=== PATIENT | male | born 1940 | race American Indian/Alaskan Native ===

== ENCOUNTER 2019-01-21 13:44 | Emergency (ER) | payer BC, MEDICARE, OTHER ==
[~2019-01-21] VITALS: Ht 165.1 cm; Wt 56.7 kg
--- NOTE | 2019-01-21 13:51 | NUR ---
"C/O R RIB PAIN SINCE YESTERDAY, -TRAUMA" PT AAOX4, -SOB, NAD NOTED, VSS ,PENDING MD FUENTES
[2019-01-21] MEDS ORDERED: KETOROLAC TROMETHAMINE INJ 30 MG/ML VIAL IV ONE (14:30)
[2019-01-21] MEDS ORDERED: IV NS 0.9% 1,000 ML BAG IV ONE (14:30)
[2019-01-21 14:37] LABS: BASOPHILS # (AUTO) 0.1 /CMM (0.0-0.2); BASOPHILS % (AUTO) 0.7 % (0.0-2.0); EOSINOPHILS % (AUTO) 1.8 % (0.0-6.0); HEMATOCRIT 44 % (39-51); HEMOGLOBIN 14.7 g/dL (13.5-17.5); LYMPHOCYTES # (AUTO) 1.6 /CMM (0.8-4.8); LYMPHOCYTES % (AUTO) 21.2 % (20.0-44.0); MEAN CORPUSCULAR HGB CONC 33 g/dl (31.0-36.0); MEAN CORPUSCULAR VOLUME 95 fL (80-96); MONOCYTES # (AUTO) 0.8 /CMM (0.1-1.30); MONOCYTES % (AUTO) 10.9 % (2.0-12.0); NEUTROPHILS % (AUTO) 65.4 % (43.0-81.0); PLATELET COUNT (AUTO) 262 /CMM (150-450); RED BLOOD CELL COUNT(AUTO) 4.67 MIL/uL (4.5-6.0); WHITE BLOOD COUNT (AUTO) 7.6 K/uL (4.3-11.0)
[2019-01-21 14:50] LABS: ALBUMIN 3.6 g/dL (3.4-5.0); BILIRUBIN,DIRECT 0.1 mg/dL (0.0-0.2); BILIRUBIN,TOTAL 0.5 mg/dL (0.2-1.0); CALCIUM, SERUM 8.8 mg/dL (8.5-10.1); POTASSIUM 4.1 mmol/L (3.5-5.1); TOTAL PROTEIN, SERUM 7.8 g/dL (6.4-8.2)
[2019-01-21] MEDS ORDERED: KETOROLAC TROMETHAMINE 15 MG/ML VIAL ONE (14:51)
--- NOTE | 2019-01-21 15:50 | NUR ---
Patient discharged to home in stable condition. Written and verbal after care instructions given. Patient verbalizes understanding of instruction. IV removed. Catheter intact and site benign. Pressure and 4x4 applied to site. No bleeding noted.
[2019-01-21 15:52] VITALS: BP 129/80
== END 2019-01-21 15:53 | disposition home or self-care (01) ==
LOC: ER 13:47
DX: K57.32 Diverticulitis of large intestine without perforation or abscess without bleeding (principal); E78.00 Pure hypercholesterolemia, unspecified; I25.10 Atherosclerotic heart disease of native coronary artery without angina pectoris; I10 Essential (primary) hypertension; I25.2 Old myocardial infarction; R00.1 Bradycardia, unspecified; Z95.5 Presence of coronary angioplasty implant and graft; Z87.442 Personal history of urinary calculi; Z60.2 Problems related to living alone
CPT/HCPCS: 36415; 74176; 80048; 80076; 83690; 85025; 93005; 96374; 99284; J1885

== ENCOUNTER 2019-05-15 05:46 | Inpatient (IN) | payer OTHER ==
[~2019-05-15] VITALS: Ht 162.6 cm; Wt 57.2 kg
[2019-05-15 06:20] LABS: BASOPHILS % (AUTO) 0.7 % (0.0-2.0); EOSINOPHILS % (AUTO) 2.6 % (0.0-6.0); HEMATOCRIT 38 % (39-51); HEMOGLOBIN 12.7 g/dL (13.5-17.5); LYMPHOCYTES # (AUTO) 2.3 /CMM (0.8-4.8); LYMPHOCYTES % (AUTO) 34.5 % (20.0-44.0); MEAN CORPUSCULAR HGB CONC 33 g/dl (31.0-36.0); MEAN CORPUSCULAR VOLUME 94 fL (80-96); MONOCYTES # (AUTO) 1.1 /CMM (0.1-1.30); MONOCYTES % (AUTO) 16.4 % (2.0-12.0); NEUTROPHILS % (AUTO) 45.8 % (43.0-81.0); PLATELET COUNT (AUTO) 216 /CMM (150-450); RED BLOOD CELL COUNT(AUTO) 4.08 MIL/uL (4.5-6.0); WHITE BLOOD COUNT (AUTO) 6.6 K/uL (4.3-11.0)
[2019-05-15 06:30] LABS: CALCIUM, SERUM 8.3 mg/dL (8.5-10.1); CREATININE 0.9 mg/dL (0.6-1.3); POTASSIUM 3.8 mmol/L (3.5-5.1)
[2019-05-15 06:42] LABS: ALBUMIN 2.9 g/dL (3.4-5.0); BILIRUBIN,DIRECT 0.2 mg/dL (0.0-0.2); BILIRUBIN,TOTAL 0.5 mg/dL (0.2-1.0); TOTAL PROTEIN, SERUM 6.8 g/dL (6.4-8.2)
[2019-05-15 07:59] LABS: BAND % (MANUAL) 1 % (0.0-5.0); EOSINOPHILS % (MANUAL) 5 % (0-4); LYMPHOCYTES % (MANUAL) 30 % (16-48); MONOCYTES % (MANUAL) 18 % (0-11.0); NEUTROPHILS % (MANUAL) 46 (42-76)
[2019-05-15 09:00] VITALS: BP 132/79
[2019-05-15] MEDS ORDERED: ONDANSETRON HCL/PF 4 MG/2 ML VIAL IVP PRN (09:30)
[2019-05-15] MEDS ORDERED: ACETAMINOPHEN 325 MG TABLET PO PRN (09:30)
[2019-05-15] MEDS ORDERED: MAG HYDROX/AL HYDROX/SIMETH 30 ML UDC PO PRN (09:30)
[2019-05-15] MEDS ORDERED: HYDROCODONE/APAP 5/325MG 1 EACH TABLET PO PRN (09:30)
[2019-05-15] MEDS ORDERED: Z GUARD REMEDY 2 OZ OINT TP PRN (09:30)
[2019-05-15] MEDS ORDERED: ASPIRIN 325 MG TABLET PO SCH (09:30)
[2019-05-15] MEDS ORDERED: MAGNESIUM HYDROXIDE 30 ML UDC PO PRN (09:30)
[2019-05-15] MEDS ORDERED: ATOR40TA PO (10:01)
[2019-05-15] MEDS ORDERED: ASPI-1169 PO (10:01)
[2019-05-15] MEDS ORDERED: RAMI5CAP66 PO (10:01)
[2019-05-15] MEDS ORDERED: ATEN50TA PO (10:01)
[2019-05-15] MEDS: METOPROLOL TARTRATE 25 MG TABLET PO SCH ×2 (10:15→20:32)
[2019-05-15 10:39] LABS: CHOLESTEROL 132 mg/dL (<200); FERRITIN 88 ng/mL (8-388); HDL CHOLESTEROL 55 mg/dL (40-60); LDL 74 mg/dL (0-99); TRIGLYCERIDES 62 mg/dL (30-150)
[2019-05-15 10:49] LABS: IRON, SERUM 33 ug/dl (50-175); TOTAL IRON BINDING CAPACITY 179 ug/dl (250-450)
[2019-05-15 12:00] VITALS: BP 140/70
[2019-05-15] MEDS ORDERED: IV NS 0.9% 250 ML IV ONE (12:53)
[2019-05-15] MEDS ORDERED: IOHEXOL-350 100 ML VIAL IV ONE ×2 (12:53→13:11)
[2019-05-15] MEDS ORDERED: METOPROLOL TARTRATE INJ 5 MG/5 ML AMPUL IVP PRN (13:30)
[2019-05-15] MEDS ORDERED: NITROGLYCERIN 0.4 MG/TAB BOTTLE SL PRN (13:30)
[2019-05-15 16:00] VITALS: BP 144/69
[2019-05-15] MEDS: ATORVASTATIN 40 MG TABLET PO SCH (17:21)
[2019-05-15 20:00] VITALS: BP_SYST 99; BP_DIAS 65; BP_DIAS 68
[2019-05-16] VITALS: BP 101/62
[2019-05-16 04:00] VITALS: BP_SYST 136; BP_SYST 138; BP_DIAS 66; BP_DIAS 70
[2019-05-16 07:16] LABS: CALCIUM, SERUM 8.8 mg/dL (8.5-10.1); CREATININE 1.1 mg/dL (0.6-1.3); MAGNESIUM 1.6 mg/dL (1.8-2.4); POTASSIUM 3.3 mmol/L (3.5-5.1)
[2019-05-16 07:25] LABS: BASOPHILS % (AUTO) 0.3 % (0.0-2.0); EOSINOPHILS % (AUTO) 0.1 % (0.0-6.0); HEMATOCRIT 42 % (39-51); HEMOGLOBIN 14.1 g/dL (13.5-17.5); LYMPHOCYTES # (AUTO) 1.1 /CMM (0.8-4.8); LYMPHOCYTES % (AUTO) 10.2 % (20.0-44.0); MEAN CORPUSCULAR HGB CONC 34 g/dl (31.0-36.0); MEAN CORPUSCULAR VOLUME 94 fL (80-96); MONOCYTES # (AUTO) 0.9 /CMM (0.1-1.30); MONOCYTES % (AUTO) 8.8 % (2.0-12.0); NEUTROPHILS # (AUTO) 8.6 /CMM (1.8-8.9); NEUTROPHILS % (AUTO) 80.6 % (43.0-81.0); PLATELET COUNT (AUTO) 238 /CMM (150-450); RED BLOOD CELL COUNT(AUTO) 4.44 MIL/uL (4.5-6.0); WHITE BLOOD COUNT (AUTO) 10.7 K/uL (4.3-11.0)
[2019-05-16 08:00] VITALS: BP 134/71
[2019-05-16] MEDS: ASPIRIN 81 MG TAB.CHEW PO SCH (08:41)
[2019-05-16] MEDS: RAMIPRIL 5 MG CAPSULE PO SCH (08:41)
[2019-05-16] MEDS: METOPROLOL TARTRATE 25 MG TABLET PO SCH ×2 (08:41→21:40)
[2019-05-16] MEDS ORDERED: ATENOLOL 50 MG TABLET PO SCH (09:00)
[2019-05-16] MEDS ORDERED: POTASSIUM CL. PREMIX PERIPHER. 50 ML IV SCH (10:57)
[2019-05-16] MEDS ORDERED: POTASSIUM CHLORIDE 20 MEQ TAB.PRT.SR PO SCH (11:00)
[2019-05-16] MEDS: Magnesium 1GM/D5W 100ML PREMIX 100 ML IV SCH ×2 (11:19→12:24)
[2019-05-16 16:00] VITALS: BP 139/91
[2019-05-16] MEDS: ATORVASTATIN 40 MG TABLET PO SCH (17:00)
[2019-05-16 20:00] VITALS: BP 155/73
[2019-05-16 21:04] VITALS: BP 155/73
[2019-05-17] VITALS (15 sets, daily range): BP systolic 110–145; BP diastolic 72–91
[2019-05-17 07:42] LABS: CALCIUM, SERUM 8.5 mg/dL (8.5-10.1); CREATININE 1.1 mg/dL (0.6-1.3); MAGNESIUM 1.9 mg/dL (1.8-2.4); POTASSIUM 4.2 mmol/L (3.5-5.1)
[2019-05-17] MEDS: RAMIPRIL 5 MG CAPSULE PO SCH (09:30)
[2019-05-17] MEDS: METOPROLOL TARTRATE 25 MG TABLET PO SCH ×2 (09:30→20:38)
[2019-05-17] MEDS: ASPIRIN 81 MG TAB.CHEW PO SCH (09:30)
[2019-05-17] MEDS ORDERED: VERAPAMIL HCL IV 5 MG/2 ML VIAL ONE (10:17)
[2019-05-17] MEDS ORDERED: HEPARIN SODIUM, PORCINE 1,000 UNIT/ML VIAL ONE (10:18)
[2019-05-17] MEDS ORDERED: NITROGLYCERIN ICAR 1,000 MCG/10 ML VIAL ICAR ONE (10:18)
[2019-05-17] MEDS ORDERED: IV NS 0.9% 1,000 ML ONE (10:52)
[2019-05-17] MEDS ORDERED: LIDOCAINE HCL/PF 1% 30 ML SDV ONE (11:13)
[2019-05-17] MEDS ORDERED: MIDAZOLAM HCL 2 MG/2ML VIAL ONE (11:28)
[2019-05-17] MEDS ORDERED: FENTANYL PF 100MCG/2ML AMPUL ONE (11:28)
[2019-05-17] MEDS ORDERED: TICAGRELOR 90 MG TABLET PO ONE (12:17)
[2019-05-17] MEDS ORDERED: ASPIRIN 325 MG TABLET ONE (12:18)
[2019-05-17] MEDS ORDERED: IODIXANOL 320MG/ML 50 ML IV ONE (12:19)
[2019-05-17] MEDS ORDERED: IV SET PRIMARY PUMP SET 1 EA INFUS.SET MC ONE (12:20)
[2019-05-17] MEDS ORDERED: IODIXANOL 150 ML IV ONE (12:30)
[2019-05-17] MEDS ORDERED: IODIXANOL 320MG/ML 100 ML IV ONE (13:11)
[2019-05-17] MEDS ORDERED: IV NS 0.9% 1,000 ML IV PRN (15:00)
[2019-05-17] MEDS: ATORVASTATIN 40 MG TABLET PO SCH (19:42)
[2019-05-17] MEDS ORDERED: TICAGRELOR 90 MG TABLET PO SCH (20:00)
[2019-05-17] MEDS: TICAGRELOR 90 MG TABLET PO SCH (20:37)
[2019-05-18] VITALS (13 sets, daily range): BP systolic 112–139; BP diastolic 63–82
[2019-05-18] MEDS: ASPIRIN 81 MG TAB.CHEW PO SCH (09:21)
[2019-05-18] MEDS: TICAGRELOR 90 MG TABLET PO SCH (09:22)
[2019-05-18] MEDS: METOPROLOL TARTRATE 25 MG TABLET PO SCH (09:22)
[2019-05-18] MEDS: RAMIPRIL 5 MG CAPSULE PO SCH (10:42)
[2019-05-18] MEDS ORDERED: TICA90TA PO (11:04)
[2019-05-18] MEDS ORDERED: METO5AMP3 IVP (11:04)
[2019-05-18] MEDS ORDERED: METO25TA6 PO (11:41)
== END 2019-05-18 14:35 | disposition home or self-care (01) | DRG 246 ==
LOC: ER 05:46 → TELE 08:35 → MED 05-16 13:20 → ICU 05-17 13:50
PROVIDERS: ADMIT Internal Medicine; ATTEND Internal Medicine
PROC: 027135Z Dilation of Coronary Artery, Two Arteries with Two Drug-eluting Intraluminal Devices, Percutaneous Approach (ICD-10-PCS; principal; 2019-05-17)
PROC: 4A023N7 Measurement of Cardiac Sampling and Pressure, Left Heart, Percutaneous Approach (ICD-10-PCS; principal; 2019-05-17)
PROC: B211YZZ Fluoroscopy of Multiple Coronary Arteries using Other Contrast (ICD-10-PCS; principal; 2019-05-17)
DX: I25.110 Atherosclerotic heart disease of native coronary artery with unstable angina pectoris (principal); I50.33 Acute on chronic diastolic (congestive) heart failure; E78.5 Hyperlipidemia, unspecified; I25.2 Old myocardial infarction; J44.9 Chronic obstructive pulmonary disease, unspecified; E78.00 Pure hypercholesterolemia, unspecified; I70.0 Atherosclerosis of aorta; K57.30 Diverticulosis of large intestine without perforation or abscess without bleeding; Z87.442 Personal history of urinary calculi; Z82.49 Family history of ischemic heart disease and other diseases of the circulatory system; N40.0 Benign prostatic hyperplasia without lower urinary tract symptoms; I11.0 Hypertensive heart disease with heart failure
CPT/HCPCS: 36415; 71045-TC; 75574; 80048-TC; 80061-TC; 80076-TC; 82728-TC; 83540-TC; 83735-TC; 83880; 84100-TC; 84484-TC; 85025-TC; 87081-TC; 92980; 92981; 92982; 93307-TC; 93452; C1725; C1887; G0378; J1644; J2250; J3010; J3475; J3490; J7050; Q9967

== ENCOUNTER 2019-05-21 14:52 | Inpatient (IN) | payer OTHER ==
[~2019-05-21] VITALS: Ht 162.6 cm; Wt 57.2 kg
[~2019-05-21 14:52] MED LIST: ASPI-1169 PO; ATOR40TA PO; METO25TA6 PO; RAMI5CAP66 PO; TICA90TA PO
--- NOTE | 2019-05-21 15:05 | NUR ---
BIB DAUGHTER FOR BLACK STOOL x 3 DAYS. TO ER BED 8, HOOKED TO MONITOR, CHANGED TO HOSP GOWN, PROVIDED W WARM BLANKET, PATIENT AOx4, BREATHING EVEN AND UNLABORED. AWAITING MD FUENTES.
--- NOTE | 2019-05-21 15:22 | NUR ---
CERTIFIED NURSING ASSISTANT INSTRUCTOR DEGRASSE AT BEDSIDE
[2019-05-21] MEDS ORDERED: PANTOPRAZOLE 80 MG in IV NS 0.9% 500 ML IV ONE (15:30)
[2019-05-21] MEDS ORDERED: IV NS 0.9% 1,000 ML BAG IV ONE (15:30)
[2019-05-21 15:41] LABS: BASOPHILS # (AUTO) 0.1 /CMM (0.0-0.2); BASOPHILS % (AUTO) 0.6 % (0.0-2.0); EOSINOPHILS % (AUTO) 0.8 % (0.0-6.0); HEMATOCRIT 41 % (39-51); HEMOGLOBIN 13.9 g/dL (13.5-17.5); LYMPHOCYTES # (AUTO) 1.5 /CMM (0.8-4.8); LYMPHOCYTES % (AUTO) 14.8 % (20.0-44.0); MEAN CORPUSCULAR HGB CONC 34 g/dl (31.0-36.0); MEAN CORPUSCULAR VOLUME 92 fL (80-96); MONOCYTES # (AUTO) 1.1 /CMM (0.1-1.30); MONOCYTES % (AUTO) 10.6 % (2.0-12.0); NEUTROPHILS # (AUTO) 7.4 /CMM (1.8-8.9); NEUTROPHILS % (AUTO) 73.2 % (43.0-81.0); PLATELET COUNT (AUTO) 323 /CMM (150-450); RED BLOOD CELL COUNT(AUTO) 4.47 MIL/uL (4.5-6.0)
[2019-05-21] MEDS ORDERED: PANTOPRAZOLE 40 MG VIAL ONE (15:50)
[2019-05-21 15:57] LABS: CARBON DIOXIDE 30 mmol/L (21-32); CHLORIDE 103 mmol/L (98-107); CREATININE 1.2 mg/dL (0.6-1.3); GLUCOSE 89 mg/dL (74-106); POTASSIUM 3.4 mmol/L (3.5-5.1); SODIUM SERUM 141 mmol/L (136-145); UREA NITROGEN, BLOOD 21 mg/dL (7-18)
[2019-05-21 16:04] LABS: ALANINE AMINOTRANSFERASE 18 U/L (12-78); ALBUMIN 3.3 g/dL (3.4-5.0); ALKALINE PHOSPHATASE 79 U/L (46-116); ASPARTATE AMINOTRANSFERASE 19 U/L (15-37); BILIRUBIN,DIRECT 0.1 mg/dL (0.0-0.2); BILIRUBIN,TOTAL 0.6 mg/dL (0.2-1.0); TOTAL PROTEIN, SERUM 7.9 g/dL (6.4-8.2)
[2019-05-21 16:21] LABS: OCCULT BLOOD STOOL POSITIVE (NEGATIVE)
--- NOTE | 2019-05-21 16:30 | NUR ---
PAGED [facility].
--- NOTE | 2019-05-21 16:49 | NUR ---
CALLED NURSING SUP FOR M/S BED.
--- NOTE | 2019-05-21 16:57 | NUR ---
NURSING SUP GAVE M/S BED 321-1.
--- NOTE | 2019-05-21 17:18 | NUR ---
REPORT GIVEN TO TRAY WICK OF [facility] UNIT
[2019-05-21 17:55] VITALS: BP 153/86
--- NOTE | 2019-05-21 18:04 | NUR ---
MS RN ADMITTING NOTES ADMITTED PT TO UNIT AT 1750 VIA GURNEY ACCOMPANIED BY E.R NURSE AND PT'S NIECE. A/O X4. ABLE TO MAKE NEEDS KNOWN, NO C/O PAIN OR DISCOMFORTS AT THIS TIME. PT VERBALIZED NOLAN HE HAD BLACK STOOL X 2 PAST 3 DAYS AND LAST ONE WAS THIS MORNING AT 0500. PT ORIENTED TO ROOM AND STAFF. ON ROOM AIR, BREATHING EVEN AND UNLABORED. V/S CHECKED AND RECORDED. SKIN IS INTACT WITH TWO SMALLL DISCOLORATION ON LEFT LOWER ARM, PHOTO TAKEN AND FILED IN CHART. PT WITH IV ACCESS ON RAC G #18 INTACT, PATENT AND FLUSHES WELL. SAFETY MEASURES INITIATED, BED PLACED IN LOWEST LOCKED POSITION WITH SR UP X2. CALL LIGHT PLACED WITHIN EASY REACH. MADE AWARE OF PT'S ADMISSION TO UNIT AWAITING FOR ADMITTING ORDERS.
--- NOTE | 2019-05-21 19:01 | NUR ---
MS/RN CLOSING NOTES PT IN BED AWAKE WATCHING TV AT THIS TIME. A/O X4. ABLE TO MAKE NEEDS KNOWN. ON ROOM AIR, TOLERATING WELL WITH NO SOB NOTED. IV ACCESS ON RAC G #18 INTACT AND PATENT. BED IN LOWEST LOCKED POSITION WITH SR UP X2. CALL LIGHT WITHIN EASY REACH OF PT. WILL ENDORSE TO US MARKETING DIRECTOR NURSE FOR GRETCHEN.
--- NOTE | 2019-05-21 19:20 | NUR ---
RN OPEN NOTES RECEIVED PATIENT AWAKE IN BED. A/OX4. NO SIGNS OF DISTRESS OR DISCOMFORT. BREATHING EVEN AND UNLABORED. IV ACCESS IN RAC, PATENT AND INTACT, NO SIGNS OF REDNESS OR INFILTRATION. BED IN LOW LOCKED POSITION WITH SIDE RAILS X2. CALL LIGHT WITHIN REACH. WILL CONTINUE TO MONITOR.
[2019-05-21 20:00] VITALS: BP 123/78
[2019-05-21] MEDS ORDERED: ACETAMINOPHEN 325 MG TABLET PO PRN (20:00)
[2019-05-21] MEDS ORDERED: MAG HYDROX/AL HYDROX/SIMETH 30 ML UDC PO PRN (20:00)
[2019-05-21] MEDS ORDERED: Z GUARD REMEDY 2 OZ OINT TP PRN (20:00)
[2019-05-21] MEDS ORDERED: PANTOPRAZOLE 80 MG in IV NS 0.9% 500 ML IV PRN (20:00)
[2019-05-21] MEDS ORDERED: HYDROCODONE/APAP 5/325MG 1 EACH TABLET PO PRN (20:00)
[2019-05-21] MEDS ORDERED: MAGNESIUM HYDROXIDE 30 ML UDC PO PRN (20:00)
[2019-05-21] MEDS ORDERED: ONDANSETRON HCL/PF 4 MG/2 ML VIAL IVP PRN (20:00)
[2019-05-21] MEDS: PANTOPRAZOLE 40 MG VIAL IV SCH (21:46)
[2019-05-22] VITALS: BP 122/80
[2019-05-22 04:00] VITALS: BP 123/80
--- NOTE | 2019-05-22 06:49 | NUR ---
RN CLOSING NOTES PATIENT RESTING COMFORTABLY IN BED. A/OX4. NO SIGNS OF DISTRESS OR DISCOMFORT. BREATHING EVEN AND UNLABORED. ON TELE MONITORING WITH SR 71 NOTED. IV ACCESS IN RAC, PATENT AND INTACT, NO SIGNS OF REDNESS OR INFILTRATION. ALL NEEDS MET. NO SIGNIFICANT CHANGES THROUGH THE NIGHT. BED IN LOW LOCKED POSITION WITH SIDE RAILS X2. CALL LIGHT WITHIN REACH. WILL ENDORSE TO AM SHIFT FOR GRETCHEN.
--- NOTE | 2019-05-22 07:30 | NUR ---
MS RN OPENING NOTE PATIENT IN BED RESTING COMFORTABLY. PATIENT IN NO ACUTE DISTRESS. NO SOB NOTED. PATIENT BREATHING IS EVEN AND UNLABORED. SAFETY PRECAUTIONS IN PLACE. PATIENT BED IS LOCKED AND IN LOWEST POSITION. CALL LIGHT WITHIN REACH. WILL CONTINUE TO MONITOR.
[2019-05-22 08:00] VITALS: BP 132/81
[2019-05-22 08:32] LABS: CALCIUM, SERUM 8.3 mg/dL (8.5-10.1); MAGNESIUM 1.5 mg/dL (1.8-2.4); PHOSPHORUS 2.7 mg/dL (2.5-4.9); POTASSIUM 3.9 mmol/L (3.5-5.1)
[2019-05-22 08:42] LABS: BASOPHILS % (AUTO) 0.6 % (0.0-2.0); EOSINOPHILS % (AUTO) 2.9 % (0.0-6.0); HEMATOCRIT 36 % (39-51); HEMOGLOBIN 12.4 g/dL (13.5-17.5); LYMPHOCYTES # (AUTO) 1.6 /CMM (0.8-4.8); MEAN CORPUSCULAR HGB CONC 34 g/dl (31.0-36.0); MEAN CORPUSCULAR VOLUME 97 fL (80-96); MONOCYTES # (AUTO) 0.9 /CMM (0.1-1.30); MONOCYTES % (AUTO) 12.4 % (2.0-12.0); NEUTROPHILS # (AUTO) 4.4 /CMM (1.8-8.9); NEUTROPHILS % (AUTO) 62.1 % (43.0-81.0); PLATELET COUNT (AUTO) 278 /CMM (150-450); RED BLOOD CELL COUNT(AUTO) 3.77 MIL/uL (4.5-6.0); WHITE BLOOD COUNT (AUTO) 7.1 K/uL (4.3-11.0)
[2019-05-22] MEDS: ASPIRIN 81 MG TAB.CHEW PO SCH (09:00)
[2019-05-22] MEDS: TICAGRELOR 90 MG TABLET PO SCH ×2 (09:00→17:00)
[2019-05-22] MEDS: PANTOPRAZOLE 40 MG VIAL IV SCH ×2 (09:04→22:09)
[2019-05-22] MEDS: RAMIPRIL 5 MG CAPSULE PO SCH (09:04)
[2019-05-22] MEDS: METOPROLOL TARTRATE 25 MG TABLET PO SCH ×2 (09:05→17:45)
--- NOTE | 2019-05-22 09:06 | NUR ---
MS/RN non-admin Non-admin for aspirin and brillinta due to positive stool OB and tarry stools for the past 3 days.
[2019-05-22] MEDS: Magnesium 1GM/D5W 100ML PREMIX 100 ML IV SCH ×2 (10:23→11:32)
[2019-05-22] MEDS: SUCRALFATE 1 G TABLET PO SCH ×3 (11:34→22:09)
[2019-05-22] MEDS ORDERED: SUCRALFATE 1 G TABLET PO SCH (12:00)
[2019-05-22 16:00] VITALS: BP 145/79
[2019-05-22] MEDS: ATORVASTATIN 40 MG TABLET PO SCH (17:44)
--- NOTE | 2019-05-22 19:42 | NUR ---
MS RN CLOSING NOTE PATIENT IN BED RESTING COMFORTABLY. PATIENT IN NO ACUTE DISTRESS. NO SOB NOTED. PATIENT BREATHING IS EVEN AND UNLABORED. PATIENT KEPT CLEAN, DRY, AND COMFORTABLE THROUGHOUT SHIFT. IV ACCESS PATENT AND INTACT. EXTREMITIES OFFLOADED ON PILLOWS. SAFETY PRECAUTIONS IN PLACE. PATIENT BED IS LOCKED AND IN LOWEST POSITION. CALL LIGHT WITHIN REACH. WILL ENDORSE CARE TO PM SHIFT FOR GRETCHEN.
--- NOTE | 2019-05-22 19:57 | NUR ---
MS RN CLOSING NOTE RECEIVED PATIENT IN BED RESTING COMFORTABLY. PATIENT IN NO ACUTE DISTRESS. NO SOB NOTED. PATIENT BREATHING IS EVEN AND UNLABORED. PATIENT KEPT CLEAN, DRY, AND COMFORTABLE THROUGHOUT SHIFT. IV ACCESS PATENT AND INTACT. EXTREMITIES OFFLOADED ON PILLOWS. SAFETY PRECAUTIONS IN PLACE. PATIENT BED IS LOCKED AND IN LOWEST POSITION. CALL LIGHT WITHIN EASY REACH. WILL CONTINUE TO MONITOR ACCORDINGLY.
[2019-05-22 20:00] VITALS: BP 121/74
--- NOTE | 2019-05-23 07:30 | NUR ---
PT RECEIVED RESTING COMFORTABLY IN BED. NO S/S OR C/O PAIN OR DISTRESS NOTED. SIDE RAILS UP X2, CALL LIGHT LEFT WITHIN REACH. WILL CONTINUE PLAN OF CARE
--- NOTE | 2019-05-23 07:30 | NUR ---
MS RN NOTES RECEIVED PATIENT IN BED RESTING COMFORTABLY. PATIENT IN NO ACUTE DISTRESS. NO SOB NOTED. PATIENT BREATHING IS EVEN AND UNLABORED. PATIENT KEPT CLEAN, DRY, AND COMFORTABLE THROUGHOUT SHIFT. IV ACCESS PATENT AND INTACT. EXTREMITIES OFFLOADED ON PILLOWS. SAFETY PRECAUTIONS IN PLACE. PATIENT BED IS LOCKED AND IN LOWEST POSITION. CALL LIGHT WITHIN EASY REACH.ENDORSED TO AM NURSE FOR CONTINUITY OF CARE.
[2019-05-23 07:48] LABS: BASOPHILS % (AUTO) 0.5 % (0.0-2.0); EOSINOPHILS % (AUTO) 2.9 % (0.0-6.0); HEMATOCRIT 36 % (39-51); HEMOGLOBIN 12.4 g/dL (13.5-17.5); LYMPHOCYTES # (AUTO) 1.5 /CMM (0.8-4.8); LYMPHOCYTES % (AUTO) 25.6 % (20.0-44.0); MEAN CORPUSCULAR HGB CONC 34 g/dl (31.0-36.0); MEAN CORPUSCULAR VOLUME 94 fL (80-96); MONOCYTES # (AUTO) 0.7 /CMM (0.1-1.30); MONOCYTES % (AUTO) 11.8 % (2.0-12.0); NEUTROPHILS # (AUTO) 3.5 /CMM (1.8-8.9); NEUTROPHILS % (AUTO) 59.2 % (43.0-81.0); PLATELET COUNT (AUTO) 295 /CMM (150-450); RED BLOOD CELL COUNT(AUTO) 3.87 MIL/uL (4.5-6.0)
[2019-05-23 08:00] VITALS: BP 133/76
[2019-05-23 08:04] LABS: CALCIUM, SERUM 8.3 mg/dL (8.5-10.1); CREATININE 0.9 mg/dL (0.6-1.3); MAGNESIUM 1.8 mg/dL (1.8-2.4)
[2019-05-23] MEDS: METOPROLOL TARTRATE 25 MG TABLET PO SCH ×2 (09:00→17:00)
[2019-05-23] MEDS: RAMIPRIL 5 MG CAPSULE PO SCH (09:14)
[2019-05-23] MEDS: ASPIRIN 81 MG TAB.CHEW PO SCH (09:14)
[2019-05-23] MEDS: SUCRALFATE 1 G TABLET PO SCH ×4 (09:14→22:26)
[2019-05-23] MEDS: PANTOPRAZOLE 40 MG VIAL IV SCH ×2 (09:14→20:53)
[2019-05-23] MEDS: TICAGRELOR 90 MG TABLET PO SCH ×2 (09:15→17:00)
[2019-05-23 16:00] VITALS: BP 136/84
[2019-05-23] MEDS: ATORVASTATIN 40 MG TABLET PO SCH (18:00)
--- NOTE | 2019-05-23 18:21 | NUR ---
PT PICKED UP FOR PROCEDURE
--- NOTE | 2019-05-23 18:24 | NUR ---
CHANGE OF SHIFT REPORT PT RESTING COMFORTABLY IN BED. NO S/S OR C/O PAIN OR DISTRESS NOTED. SIDE RAILS UP X2, CALL LIGHT LEFT WITHIN REACH. PT KEPT CLEAN, DRY, AND COMFORTABLE. NO SIGNIFICANT CHANGE SINCE PREVIOUS SHIFT. WILL GIVE REPORT TO EDISON WICK. Addendum: 05/23/19 at 182 by REN CLARKE RN WRONG PATIENT. Addendum: 05/23/19 at 182 by REN CLARKE RN CHANGE OF SHIFT REPORT PT CURRENTLY AT PROCEDURE. PT KEPT CLEAN, DRY, AND COMFORTABLE. NO SIGNIFICANT CHANGE SINCE PREVIOUS SHIFT. WILL GIVE REPORT TO EDISON WICK.
--- NOTE | 2019-05-23 20:05 | NUR ---
RN NOTES PATIENT CAME BACK FROM EGD PROCEDURE, RECEIVED REPORT FROM OR NURSE WEN VILLA RN, PATIENT IS IN STABLE CONDITION NO COMPLAINTS OF PAIN AT THIS TIME, SAFETY MEASURES IN PLACE, CALL LIGHT WITHIN EASY REACH, BED IN LOW LOCKED POSITION, ALL NEEDS ATTENDED, DR. RATLIFF ORDERED TO RESUME ON REGULAR DIET. WILL CONTINUE TO MONITOR ACCORDINGLY.
[2019-05-23 20:55] VITALS: BP 127/78
[2019-05-23 20:58] VITALS: BP 127/78
[2019-05-24 03:08] VITALS: BP 127/81
--- NOTE | 2019-05-24 03:09 | NUR ---
RN NOTES PATIENT COMPLAINING OF LEFT CHEST PAIN, PAIN LEVEL 3/10, REPOSITIONED FOR COMFORT. VITAL SIGNS TAKEN AND RECORDED, VITAL SIGNS BP 127/81, 68,RR20, TEMP 98.0, SATING 100% ON ROOM AIR. DOESN'T WANT TO TAKE ANY PAIN MEDICATION, WILL MONITOR .
--- NOTE | 2019-05-24 03:50 | NUR ---
RN NOTES PATIENT IS RESTING SLEEPING COMFORTABLY AT THIS TIME, NO SIGNS OF DISTRESS NOTED. WILL MONITOR.
[2019-05-24 06:44] LABS: BASOPHILS % (AUTO) 0.6 % (0.0-2.0); EOSINOPHILS % (AUTO) 2.9 % (0.0-6.0); HEMATOCRIT 35 % (39-51); LYMPHOCYTES # (AUTO) 1.5 /CMM (0.8-4.8); LYMPHOCYTES % (AUTO) 27.1 % (20.0-44.0); MEAN CORPUSCULAR HGB CONC 34 g/dl (31.0-36.0); MEAN CORPUSCULAR VOLUME 92 fL (80-96); MONOCYTES # (AUTO) 0.8 /CMM (0.1-1.30); MONOCYTES % (AUTO) 14.7 % (2.0-12.0); NEUTROPHILS # (AUTO) 3.1 /CMM (1.8-8.9); NEUTROPHILS % (AUTO) 54.7 % (43.0-81.0); PLATELET COUNT (AUTO) 299 /CMM (150-450); RED BLOOD CELL COUNT(AUTO) 3.83 MIL/uL (4.5-6.0); WHITE BLOOD COUNT (AUTO) 5.7 K/uL (4.3-11.0)
--- NOTE | 2019-05-24 06:55 | NUR ---
RN NOTES ALL NEEDS ATTENDED AND MET, ABLE TO REST AND SLEPT AT INTERVALS, SAFETY MEASURES IN PLACE, DENIES ANY PAIN OR DISCOMFORT AT THIS TIME, SAFETY MEASURES INPLACE, KEPT CLEAN DRY AND COMFORTABLE, CALL LIGHT WITHIN EASY REACH, WILL ENDORSE TO AM NURSE FOR CONTINUITY OF CARE.
--- NOTE | 2019-05-24 07:53 | NUR ---
MS/RN OPENING NOTES RECEIVED PATIENT LYING COMFORTABLY, ALERT ORIENTED X4. SAFETY MEASURES IN PLACE, DENIES ANY PAIN OR DISCOMFORT AT THIS TIME, HP PATENT AND INTACT.SAFETY MEASURES IN PLACE, KEPT CLEAN DRY AND COMFORTABLE, BED IS ON LOW POSITION. SIDE RAILS UP X2.CALL LIGHT WITHIN REACH, WILL CONTINUE TO MONITOR.
[2019-05-24 08:00] VITALS: BP 136/71
[2019-05-24] MEDS: SUCRALFATE 1 G TABLET PO SCH ×2 (08:08→11:23)
[2019-05-24] MEDS: PANTOPRAZOLE 40 MG VIAL IV SCH (08:10)
[2019-05-24 08:13] VITALS: BP 136/71
[2019-05-24] MEDS: RAMIPRIL 5 MG CAPSULE PO SCH (08:13)
[2019-05-24] MEDS: METOPROLOL TARTRATE 25 MG TABLET PO SCH (08:13)
[2019-05-24] MEDS: ASPIRIN 81 MG TAB.CHEW PO SCH (08:14)
[2019-05-24] MEDS: TICAGRELOR 90 MG TABLET PO SCH (09:00)
[2019-05-24] MEDS ORDERED: PANT40TA2 PO (11:19)
[2019-05-24] MEDS ORDERED: SUCR1TAB PO (11:19)
--- NOTE | 2019-05-24 14:10 | NUR ---
MS/RN NOTES PATIENT IS ALERT AND ORIENTED X4. DENIES PAIN. PATIENT IN NO APPARENT DISTRESS. IN ROOM AIR AND SATURATION 98%. RESPIRATION REGULAR AND UNLABORED. THE PATIENT IS GIVEN DISCHARGED INSTRUCTIONS AND VERBALIZED UNDERSTANDING. THE PATIENT LEFT THE HOSPITAL IN STABLE CONDITION WITH HIS NIECE J[place]ON ON A PRIVATE CAR.
== END 2019-05-24 14:06 | disposition home or self-care (01) | DRG 379 ==
LOC: ER 16:26 → MED 17:30 → TELE 21:50 → MED 05-22 08:12
PROVIDERS: ADMIT Internal Medicine; ATTEND Internal Medicine
PROC: 0DB78ZX Excision of Stomach, Pylorus, Via Natural or Artificial Opening Endoscopic, Diagnostic (ICD-10-PCS; principal; 2019-05-23)
DX: K25.4 Chronic or unspecified gastric ulcer with hemorrhage (principal); E78.5 Hyperlipidemia, unspecified; I10 Essential (primary) hypertension; I25.10 Atherosclerotic heart disease of native coronary artery without angina pectoris; K29.70 Gastritis, unspecified, without bleeding; Z98.61 Coronary angioplasty status; J44.9 Chronic obstructive pulmonary disease, unspecified; Z87.442 Personal history of urinary calculi; Z79.899 Other long term (current) drug therapy; Z79.02 Long term (current) use of antithrombotics/antiplatelets; I25.2 Old myocardial infarction; Z79.82 Long term (current) use of aspirin; D50.0 Iron deficiency anemia secondary to blood loss (chronic); E78.00 Pure hypercholesterolemia, unspecified
CPT/HCPCS: 36415; 80048-TC; 80076-TC; 82272-TC; 83735-TC; 84100-TC; 85025-TC; 85730-TC; 87081-TC; C9113; G0378; J2704; J3475; J3490; J7030